=== PATIENT | male | born 1960 | race Caucasian/White ===

== ENCOUNTER 2019-03-12 20:29 | Inpatient (IN) | payer OTHER ==
[~2019-03-12] VITALS: Ht 182.9 cm; Wt 98.0 kg
[2019-03-12 21:14] LABS: BASOPHILS ABSOLUTE AUTO 0.15 K/mm3 (0.00-0.23); BASOPHILS PERCENT AUTO 1 % (0-2); EOSINOPHILS ABSOLUTE AUTO 0.58 K/mm3 (0.00-0.68); EOSINOPHILS PERCENT AUTO 3 % (0-6); Hematocrit 33.7 % (37.0-53.0); Hemoglobin 9.9 g/dL (13.5-17.5); IMMATURE GRAN ABSOLUTE AUTO 0.21 K/mm3 (0.00-0.10); IMMATURE GRAN PERCENT AUTO 1 % (0-1); LYMPHOCYTES ABSOLUTE AUTO 3.66 K/mm3 (0.84-5.20); LYMPHOCYTES PERCENT AUTO 21 % (21-46); MONOCYTES ABSOLUTE AUTO 1.35 K/mm3 (0.16-1.47); MONOCYTES PERCENT AUTO 8 % (4-13); Mean Corpuscular HGB 23.9 pg (26.0-34.0); Mean Corpuscular HGB Conc 29.4 g/dL (31.5-36.5); Mean Corpuscular Volume 81 fL (80-100); Mean Platelet Volume 8.9 fL (9.1-12.4); NEUTROPHILS PERCENT AUTO 67 % (41-73); Platelet Count 710 K/mm3 (150-400); RDW Coefficient Variation 17.9 % (11.7-14.2); RDW Standard Deviation 53.3 fL (35.1-46.3); Red Blood Cell Count 4.14 M/mm3 (4.30-5.90); White Blood Cell Count 17.75 K/mm3 (4.00-11.30)
[2019-03-12 21:24] LABS: International Normalized Ratio 1.07; Prothrombin Time Results 11.3 Sec (9.7-11.5)
[2019-03-12 21:29] LABS: Alanine Aminotransfer (ALT/SGP 31 U/L (12-78); Albumin/Globulin Ratio 0.6 (0.8-1.8); Alk Phos 106 U/L (50-136); Anion Gap 13 mmol/L (6-16); Aspartate Aminotrans (AST/SGOT 20 U/L (12-37); Bilirubin, Total 0.3 mg/dL (0.1-1.0); Blood Urea Nitrogen 18 mg/dL (8-24); Bun/Creatinine Ratio 8.8 (12.0-20.0); CO2, Blood 21 mmol/L (21-32); Calcium, Blood 9.3 mg/dL (8.5-10.1); Chloride, Blood 106 mmol/L (98-108); Creatinine, Blood 2.05 mg/dL (0.60-1.20); Globulin, Blood 5.1 g/dL (2.2-4.0); Glomerular Filtration Rate 36 (60-); Glucose, Blood 121 mg/dL (70-99); Potassium, Blood 4.3 mmol/L (3.5-5.5); Sodium, Blood 140 mmol/L (136-145); Total Protein, Blood 8.1 g/dL (6.4-8.2); Troponin I <0.015 ng/mL (0.000-0.040)
[2019-03-13 01:15] LABS: Source, Urine Clean Catch
[2019-03-13 01:28] LABS: Bilirubin, Urine Neg (Neg); Blood, Urine Neg (Neg); Glucose Qualitative, Urine Neg (Neg); Ketones, Urine Neg (Neg); Leukocyte Esterase, Urine Neg (Neg); Nitrite, Urine Neg (Neg); Protein, Urine 1+ (Neg); Urobilinogen, Urine NORM (Normal); pH, Urine 6.5 (5.0-8.0)
[2019-03-13 01:31] LABS: Appearance, Urine Clear (Clear); Color, Urine Yellow (P-Yellow)
--- NOTE | 2019-03-13 01:38 | NUR ---
PT ARRIVES TO ICU 1 VIA GURNEY FROM ER FOR DIAGNOSIS OF ACUTE ENCEPHALOPATHY, PT GRIMACES TO DEEP STERNAL RUB ON ARRIVAL HOWEVER AFTER SLIDE TRANSFER TO BED AND TURNED TO RIGHT SIDE HE IS NOTED TO HAVE RHYTHMIC JERKING MOVEMENTS OF EXTREMITIES AND GRUNTING RESPIRATIONS. WHEN NOXIOUS STIMULI IS REMOVED PT APPEARS TO RELAX, OBSTRUCTIVE SLEEP APNEA IS NOTED, SNORING RESPIRATORY PATTERN IMPROVES TO CLEAR WITH JAW THRUST, LUNG SOUNDS ARE CLEAR THROUGHOUT AT THIS TIME, RESP RATE 16-20, SATS HIGH 90S WITH OXYGEN AT 2 L/MIN VIA NC. HRR, SINUS ON MONITOR, PRESSURE 125/72, PULSES FULL X 4 EXTREMITIES, NO EDEMA NOTED. ACTIVE BOWEL TONES NOTED X 4, ABD SOFT, NO GRIMACING WITH LIGHT PALPATION, MIDLINE INCISION NOTED WITH SHEN OPEN TO AIR AND SMALL HEALING TRANSVERSE INCISION OVER RIGHT GROIN NO STERI STRIPS OR SHEN ARE NOTED AT THAT SITE. 20 G IV IS NOTED TO LEFT WRIST FLUSHES WELL, 18 G IV NOTED TO LEFT AC FLUSHES WELL. PT PUPILS ARE NOTED AT 2 AND SLUGGISH AT REST, WITH INCREASED NOXIOUS STIMULI PT'S PUPILS ARE NOTED TO INCREASE TO 6.
[2019-03-13 01:39] LABS: U Amphetamine Screen Not Detected; U Barbituate Screen Not Detected; U Benzodiazapine Screen Not Detected; U Buprenorphine Screen Not Detected; U Cannabinoids Screen Not Detected; U Cocaine Screen Not Detected; U Methadone Screen Not Detected; U Methamphetamine Screen Not Detected; U Opiates Screen DETECTED; U Oxycodone Screen Not Detected; U Phencyclidine Screen Not Detected; U Propoxyphene Screen Not Detected
--- NOTE | 2019-03-13 02:16 | NUR ---
CALL TO MD DR JARRETT NOTIFIED REGARDING POSSIBLE SEIZURE ACTIVITY. RECEIVED ORDER FOR ATIVAN AND CANALES CATH.
[2019-03-13 02:55] LABS: U Amphetamine Screen Not Detected; U Barbituate Screen Not Detected; U Benzodiazapine Screen Not Detected; U Buprenorphine Screen Not Detected; U Cannabinoids Screen Not Detected; U Cocaine Screen Not Detected; U Methadone Screen Not Detected; U Methamphetamine Screen Not Detected; U Opiates Screen DETECTED; U Oxycodone Screen Not Detected; U Phencyclidine Screen Not Detected; U Propoxyphene Screen Not Detected
--- NOTE | 2019-03-13 03:33 | NUR ---
RECORDS REQUEST FAXED REQUEST FOR H&P, REPORT OF OPERATION AND DISCHARGE SUMMARY TO [facility]. SHE STATES THAT PT WAS ADMITTED ON 02/25/19 AND DISCHARGED ON 03/03/19.
[2019-03-13] MEDS ORDERED: ASPI325EC PO (04:19)
[2019-03-13] MEDS ORDERED: BACL10 PO (04:20)
[2019-03-13] MEDS ORDERED: GABA300 PO (04:22)
[2019-03-13] MEDS ORDERED: FENTANYL 110 MCG/11 ×2 (04:22→04:26)
[2019-03-13] MEDS ORDERED: FURO20 PO (04:22)
[2019-03-13] MEDS ORDERED: Norco 10-325 T1 EACH PO (04:24)
[2019-03-13] MEDS ORDERED: LEVSOD50 PO (04:27)
[2019-03-13] MEDS ORDERED: LOVA40 PO (04:33)
[2019-03-13] MEDS ORDERED: OMEPRAZOLE MAGN20 MG PO (04:34)
[2019-03-13] MEDS ORDERED: ONDA4ODT PO (04:34)
[2019-03-13] MEDS ORDERED: GAVILAX17 GM PO (04:36)
[2019-03-13] MEDS ORDERED: POTCHL10ER PO (04:37)
[2019-03-13] MEDS ORDERED: XARELTO20 MG PO (04:38)
[2019-03-13] MEDS ORDERED: TESTONE CI200 MG/1 M IM (04:39)
--- NOTE | 2019-03-13 06:46 | NUR ---
PT AROUSES EASILY TO VERBAL STIMULI AT 0530 THIS AM, HE IS ABLE TO STATE THAT HE IS IN THE HOSPITAL IN [place], DENIES USING MARIJUANA PRIOR TO ADMIT, DENIES DRUG USE, DENIES ALCOHOL USE, REPEATS "NO MA'AM" FOR ALL QUESTIONS AND THEN IS NOTED TO REPEAT "NO MA'AM" SEVERAL TIMES WITHOUT A QUESTION BEING ASKED AT 0545, RHYTHMIC JERKING OF EXTREMITIES IS AGAIN NOTED WITH GRUNTING RESP PATTERN, PT IS NOTED TO BE ANSWERING FEWER QUESTIONS AND ANSWERS WERE NOW SHORT ONE TO 2 WORD ANSWERS, PUPILS ARE AGAIN NOTED AT 6, WHEN PT IS ASKED WHY HE IS JERKING HE IS ABLE TO STATE "I DON'T KNOW" HE DENIES THAT THIS IS NORMAL FOR HIM AND DENIES THAT HE HAS EVER HAD THIS HAPPEN BEFORE. LUNGS REMAIN CLEAR THROUGHOUT AND SATS MAINTAIN HIGH 90S WITH OXYGEN AT 2 L/MIN VIA NC. PT IS NOTED TO BEAR DOWN AND GRUNT TO THE POINT WHERE HIS FACE IS RED, DIAPHORESIS IS NOTED. CALL PLACED TO DR GAMEZ REQUESTING HIM TO OBSERVE PT BEHAVIOR AT THIS TIME. ATIVAN 2 MG IV ADMIN SECONDARY TO RISK TO RECENT AORTIC BYPASS GRAFT. DR JARRETT ARRIVES TO BEDSIDE AFTER PT HAS RETURNED TO RELAXED STATE, DISCUSSED PT PRESENTATION AT TIME OF CALL AND POSSIBILITY OF ABNORMAL SEIZURE TYPE ACTIVITY. WILL CONT TO MONITOR.
[2019-03-13 10:14] LABS: Hematocrit 31.1 % (37.0-53.0); Mean Corpuscular HGB 23.5 pg (26.0-34.0); Mean Corpuscular HGB Conc 28.9 g/dL (31.5-36.5); Mean Corpuscular Volume 81 fL (80-100); Mean Platelet Volume 9.1 fL (9.1-12.4); Platelet Count 472 K/mm3 (150-400); RDW Coefficient Variation 18.3 % (11.7-14.2); RDW Standard Deviation 53.4 fL (35.1-46.3); Red Blood Cell Count 3.83 M/mm3 (4.30-5.90); White Blood Cell Count 9.08 K/mm3 (4.00-11.30)
[2019-03-13 10:38] LABS: Alanine Aminotransfer (ALT/SGP 24 U/L (12-78); Albumin, Blood 2.4 g/dL (3.4-5.0); Albumin/Globulin Ratio 0.5 (0.8-1.8); Alk Phos 86 U/L (50-136); Anion Gap 4 mmol/L (6-16); Aspartate Aminotrans (AST/SGOT 12 U/L (12-37); Bilirubin, Total 0.3 mg/dL (0.1-1.0); Blood Urea Nitrogen 13 mg/dL (8-24); CO2, Blood 29 mmol/L (21-32); Chloride, Blood 112 mmol/L (98-108); Creatinine, Blood 1.08 mg/dL (0.60-1.20); Globulin, Blood 4.4 g/dL (2.2-4.0); Glomerular Filtration Rate >60 (60-); Glucose, Blood 93 mg/dL (70-99); Potassium, Blood 4.3 mmol/L (3.5-5.5); Sodium, Blood 145 mmol/L (136-145); Total Protein, Blood 6.8 g/dL (6.4-8.2)
--- NOTE | 2019-03-13 11:59 | NUR ---
0830 PT IS CALM AND SEDATE FROM EARLIER NOC ATIVAN. PT DEMONSTRATES SOME RAFAEL BUT POSITIONED TO PREVENT IN SIDE LYING POSITION. PT VSS.
--- NOTE | 2019-03-13 12:01 | NUR ---
1100 PT AWAKE AND INITIALLY RESPONDING VERY SLOWLY TO VERBAL STIMULI. PUPILS NOTED AT 8MM. 3-5 MINUTES LATER PT CONT TO MOAN AND BARE DOWN IF HE IS HAVING A BM BUT WOULD NOT THEN RESPOND TO QUESTIIONING RE ANY DISTRESS BUT WOULD RANDOMLY BEGIN TO FOLLOW SOME SIMPLE COMMMANDS BUT THIS REMAINED INCONSISTANT. PT CONT TO BARE DOWN IN HEAVY VALSALVA MANNER AND THEN INDICATED HE NEEDED TO "PISS". PT CLINICAL PICTURE HAD CHANGED SUFFICENTLY IN A SUBJECTIVE MANNER AND REQUESTED DR MANUEL TO REVISIT PT TO SEE IF THERE WERE ANY OTHER CONSIDERATIONS IN LIGHT OF ENCEPHALOPATHIC ADMIT ISSUES AND A CLEAR CLINICAL CHANGE FROM THIS AM.
--- NOTE | 2019-03-13 12:10 | NUR ---
1115 DR MANUEL ARRIVED PT NOW BEGAN C/O ABDOMINAL PAIN AND VERY TENDER UPON ASSISTMENT. THIS LATER CHANGED TO BACK PAIN, THEN URINARY PAIN AND DISPITED FENTANYL IV (SEE EMAR) PT CONT TO GROAN, VALSALVA, SUNITHA, C/O NEED TO URINATE, AND SLOW AND SOMEWHAT INCONSISTANT WITH VERBAL RESPONSED FOR HIS PAIN OR MOANING NEEDS. POSSIBLE RELATED TO HIS ENCEPHALOPATHIC STATUS AND WILL ADMINISTER PRN TO ASSIST PAIN/AGITATION/?...STATUS.
--- NOTE | 2019-03-13 12:27 | NUR ---
PT REPOSITIONED TO BACK AND SEEMED TO RELAX A LITTLE MORE. HOWEVER HE REMAINS SLOW TO RESPOND TO QUESTIONS AND MOANING/GROANING LESS, AND INCONSISTANT WITH RESPONSES. WILL FOLLOW.
--- NOTE | 2019-03-13 14:58 | NUR ---
STATUS REPORT CALLED TO DR MANUEL RE PT AGITATION AND CONFUSION AND INCONSISTANT STORY OF PAIN AND DISTRESS. PT LYING IN BED AWAKE AND CARRYING ON CONVERSATION WITH HIMSELF IN THE ROOM. PT HEAVY MOANING AND BARING DOWN IS ADDRESSED WITH DR AMNUEL AND NEW MEDICATION ORDERS TO FOLLOW.
[2019-03-13 15:22] LABS: U Amphetamine Screen Not Detected; U Barbituate Screen Not Detected; U Benzodiazapine Screen DETECTED; U Buprenorphine Screen Not Detected; U Cannabinoids Screen DETECTED; U Cocaine Screen Not Detected; U Methadone Screen Not Detected; U Methamphetamine Screen Not Detected; U Opiates Screen DETECTED; U Oxycodone Screen Not Detected; U Phencyclidine Screen Not Detected; U Propoxyphene Screen Not Detected
--- NOTE | 2019-03-13 17:49 | NUR ---
PT CONFUSION INCREASING THIS AFTERNOON AND HAVE JUST GIVEN FENTANYL AND PT RELAXED AND SEDATE AT THIS TIME. PO 1800 WERE NOT GIVEN DUE TO SEDATION EFFECT. PT VSS. I/O NOTED PT TAKING PO LIQUIDS WELL AND W/O CHOKING BUT C/O HIATAL HERNIA BUT SOME OF THIS MAY ASLO BE EXAGERATED WITH CONFUSION. PT WHILE HE IS CONFUSED HE HAS BEEN COOPERATIVE.
--- NOTE | 2019-03-13 19:30 | NUR ---
ASSUMED CARE, REPORT RECEIVED. PT IS RESTING QUIETLY RECLINING IN BED AT THIS TIME. HE IS ABLE TO STATE THAT HE IS IN THE HOSPITAL HOWEVER WHEN ASKED THE CITY HE STATES [place], HE STATES THE REASON FOR ADMIT A CLOT IN HIS AORTA AND NEEDING SURGERY. ATTEMPT TO REORIENT PATIENT TO RECENT SURGERY AT HOSPITAL IN [place] HE STATES THAT "THEY LIED" HE DENIES HAVING RECENT SURGERY. PT GOWN PULLED BACK AND SHOWED PT ABD INCISION WITH SHEN STILL IN PLACE, HE STATES "THEY THOUGHT THAT WOULD BE FUNNY" AND CONTINUES TO DENY RECENT SURGERY. AFTER CONTINUED DISCUSSION REGARDING EVENTS PRIOR TO THIS ADMISSION PT DOES BEGIN TO STATE THAT HE REMEMBERS AND CAN DISCUSS EVENTS OF PREVIOUS ADMISSION AT [facility], WILL CONT TO MONITOR ORIENTATION. HE IS NOTED TO BE SPEAKING IN FULL SENTANCES NOW AND EASILY AROUSABLE TO VERBAL STIMULI. GRUNTING RESPIRATIONS HAVE IMPROVED HOWEVER DO CONTINUE, HE STATES THAT HE DOES NOT KNOW WHY HE IS DOING THIS. HE DENIES PAIN AT THIS TIME HOWEVER CNVI IS OBTAINED SECONDARY TO PT'S PREV CONFUSED CONVERSATION, CNVI IS 1, WILL CONT TO MONITOR FOR PAIN. LUNGS ARE CLEAR THROUGHOUT WITH DIM BASES BILAT, PT IS MAINTAINING SATS ON ROOM AIR, RESP RATE MID TO HIGH TEENS, NO INCREASED WORK OF BREATHING IS NOTED. HRR, SINUS ON MONITOR, RATE 80S, PRESSURE MAINTAINING. ABD DISTENDED, FIRM, HYPOACTIVE BOWEL TONES, PT DENIES N/V, WHEN PT IS ASKED ABOUT LAST BOWEL MOVEMENT HE STATES "JUST BEFORE THE COMPETITION" HE IS UNABLE TO STATE HOW MANY DAYS AGO THIS WAS HOWEVER WHEN ASKED FOR THE DATE OF THE POWER LIFTING COMPETITION HE SPOKE OF, HE STATES "THE FIFTEEN" HE DENIES FEELING CONSTIPATED AT THAT TIME AND "IT JUST SLIPPED RIGHT OUT" HE DENIES FEELING CONSTIPATED AT THIS TIME HOWEVER IS AGREEABLE TO ORDERED BOWEL CARE. CANALES CATH REMAINS IN PLACE DRAINING CLEAR WANDA URINE TO GRAVITY, WILL MONITOR.
[2019-03-14 03:36] LABS: Hemoglobin 8.1 g/dL (13.5-17.5); Mean Corpuscular HGB 23.5 pg (26.0-34.0); Mean Corpuscular HGB Conc 28.9 g/dL (31.5-36.5); Mean Corpuscular Volume 81 fL (80-100); Mean Platelet Volume 8.8 fL (9.1-12.4); Platelet Count 423 K/mm3 (150-400); RDW Coefficient Variation 18.5 % (11.7-14.2); Red Blood Cell Count 3.45 M/mm3 (4.30-5.90); White Blood Cell Count 6.97 K/mm3 (4.00-11.30)
[2019-03-14 03:51] LABS: Albumin, Blood 2.3 g/dL (3.4-5.0); Anion Gap 4 mmol/L (6-16); Blood Urea Nitrogen 17 mg/dL (8-24); Bun/Creatinine Ratio 16.2 (12.0-20.0); CO2, Blood 29 mmol/L (21-32); Calcium, Blood 8.7 mg/dL (8.5-10.1); Chloride, Blood 111 mmol/L (98-108); Creatinine, Blood 1.05 mg/dL (0.60-1.20); Glomerular Filtration Rate >60 (60-); Glucose, Blood 83 mg/dL (70-99); Phosphorus, Blood 3.6 mg/dL (2.5-4.9); Potassium, Blood 3.8 mmol/L (3.5-5.5); Sodium, Blood 144 mmol/L (136-145)
--- NOTE | 2019-03-14 06:21 | NUR ---
PT RESTS QUIETLY THROUGHOUT SHIFT, OXYCODONE 20 MG ADMIN X 1 AND FENTANYL 50 MCG IV ADMIN X 1 FOR PAIN. PT REPORTS PAIN LEVEL OF 5/10 IS HIS BASELINE AND CONSIDERED GOOD CONTROL, PAIN SCORE FOLLOWING FENTANYL ADMIN WAS 7/10, PT STATES THAT HE IS FEELING BETTER THIS AM HOWEVER NO PAIN SCORE WAS PROVIDED. HE IS EASILY AROUSABLE TO VERBAL STIMULI THIS AM, STATES ON AWAKENING "[facility]" WHEN ASKED TO CLARIFY PT IS ABLE TO STATE THAT HE IS IN THE HOSPITAL IN [place]. NO GRUNTING RESPIRATIONS ARE NOTED ON AWAKENING THIS AM AND NO ABNORMAL MOVEMENT OF EXTREMITIES IS NOTED. LUNGS REMAIN CLEAR THROUGHOUT THIS SHIFT, SATS ARE HIGH 90S ON ROOM AIR WHEN PT IS AWAKE, NASAL CANNULA AT 2 L/MIN WITH SLEEP SECONDARY TO SATS DECREASING TO 88-89% WITH SLEEP. HRR, PRESSURES MAINTAINING, CONTINUES TO HAVE EASILY PALPABLE PULSES X 4 EXTREMITIES. PT WAS UP TO BSC X 1 THIS SHIFT WITH 2 PERSON CONTACT GUARD ASSIST AND TOLERATED WELL, SMALL HARD BROWN BOWEL MOVEMENT AFTER ORDERED HS BOWEL CARE, PT STATED THAT LAST BM WAS ON THE 15 AND THAT HE DID NOT FEEL CONSTIPATED AT THAT TIME, THAT IT "JUST SLIPPED RIGHT OUT" CANALES CATH REMAINS IN PLACE, URINE OUTPUT OF ONLY 250 ML THIS SHIFT, HE HAS LASIX A HOME MEDICATION THAT HAS NOT BEEN INITIATED OF THIS TIME, WILL DISCUSS WITH HOSPITALIST THIS AM.
--- NOTE | 2019-03-14 08:57 | NUR ---
PT SLEEPING IN BED THIS, AWOKE TO VOICE. ALERT AND ORIENTED X3, SOMEWHAT DROWSY AND SLOW TO ANSWER QUUESTIONS BUT MUCH IMPROVED AFTER OOB TO CHAIR W 1 ASSIST. PARKER REMOVED W/O DIFFICULTY. PT ABLE TO SWALLOW, STATES HE IS HUNGRY. DR MANUEL IN TO SEE PT, THIS AM. PT NOW MED FLOOR STATUS NO TELE. TRAY ORDERED. PT C/O PAIN 8/10 TO ABD, CNVI 2/5. ABD DISTENDED, SOFT, SLIGHTLY TENDER TO PALP. LARGE MIDLINE INCISION W SHEN C/D/I. BLE PINK AND WARM W PULSES.
--- NOTE | 2019-03-14 10:23 | NUR ---
REPORT GIVEN TO ALEX WHITLEY. PT UP TO SHOWER, TOLERATED WELL
[2019-03-14 11:39] LABS: Percent Saturation 8.6 % (20.0-50.0)
--- NOTE | 2019-03-14 11:43 | NUR ---
PER PT'S VASCULAR SURGEON IN [place]; PT TO LEAVE SHEN IN FOR NOW HE HAS A FOLLOW UP APPOINTMENT THIS , AND WILL BE TRAVELING. ALEX WHITLEY NOTIFIED. PT TRANSFERED TO [facility] VIA W/C IN STABLE CONDITION
--- NOTE | 2019-03-14 17:16 | NUR ---
SUMMARY PT TRANSFERRED UP FROM ICU, PT IS ALERT AND ORIENTED, MIN ASSIST IN THE ROOM, MED PER EMAR FOR CHRONIC PAIN, PT HAS BEEN UP TO THE SHOWER AFTER HAVING AN INCONTINENT BM ACCIDENT, PT HOPEFUL TO DISCHARGE TOMORROW, VSS, NO ACUTE CHANGES, WILL CONT TO MONITOR
[2019-03-15 06:02] LABS: Albumin, Blood 2.3 g/dL (3.4-5.0); Anion Gap 6 mmol/L (6-16); Blood Urea Nitrogen 18 mg/dL (8-24); Bun/Creatinine Ratio 18.1 (12.0-20.0); CO2, Blood 28 mmol/L (21-32); Calcium, Blood 8.6 mg/dL (8.5-10.1); Chloride, Blood 106 mmol/L (98-108); Creatinine, Blood 0.99 mg/dL (0.60-1.20); Glomerular Filtration Rate >60 (60-); Glucose, Blood 93 mg/dL (70-99); Phosphorus, Blood 3.8 mg/dL (2.5-4.9); Potassium, Blood 3.7 mmol/L (3.5-5.5); Sodium, Blood 140 mmol/L (136-145)
--- NOTE | 2019-03-15 07:23 | NUR ---
pain not well contorlled, pump not viable, call light in reach, saline locked, room air, bsr provided to day nurse
--- NOTE | 2019-03-15 14:56 | NUR ---
DISCHARGE DISCHARGE MEDICATIONS AND INSTRUCTIONS EXPLAINED TO PATIENT. PATIENT STATED UNDERSTANDING. FOLLOW UP APPOIUTNMENTS SCHEDULED WITH [facility] FOR [facility]LE REMOVAL AND [facility] IN [place] FOR PCP FOLLOW UP. IV'S REMOVED WITHOUT DIFFICULTY. BELONGINGS WITH PATIENT. PATIENT TRANSFERED TO TRANSLINK VEHICLE VIA WHEELCHAIR.
== END 2019-03-15 14:58 | disposition home or self-care (01) | DRG 917 ==
LOC: ER 20:29 → ICUE 20:30 → MEDS 03-14 11:43 → ENPENDDIS 03-15 09:22 → MEDS 03-15 14:58
PROVIDERS: Emergency Medicine; Internal Medicine; ADMIT Internal Medicine
DX: T40.601A Poisoning by unspecified narcotics, accidental (unintentional), initial encounter (principal); G92 Toxic encephalopathy; N17.9 Acute kidney failure, unspecified; D50.9 Iron deficiency anemia, unspecified; E03.9 Hypothyroidism, unspecified; G89.4 Chronic pain syndrome; K59.00 Constipation, unspecified; E86.0 Dehydration; Z95.828 Presence of other vascular implants and grafts
CPT/HCPCS: 36415; 51702; 70450; 71275; 74018; 74175; 80053; 80069; 82550; 82607; 82728; 82746; 83540; 83550; 83605; 83690; 83880; 84484; 85025; 85027; 85610; 85730; 93005; 93010; 96361; 96361-59; 96372; 96374-59; 96375; 96376; 97116; 97162; 97165; 97535; 99285-25; G0378; G0480; J1650; J2060; J2250; J3010; J7030; Q9967